=== PATIENT | female | born 1980 | race Caucasian/White ===

== ENCOUNTER 2021-12-10 00:42 | Day surgery (SDC) | payer BC, SELFPAY ==
[2021-12-04 13:11] VITALS: BMI 23.6
--- NOTE | 2021-12-04 13:20 | PC.NURSE ---
Report to the Outpatient Waiting Room, entrance under the green pavilion located off [facility], at time 1100 on date 12/10/21. OR Time: 1300. - You will be asked a series of questions to screen for COVID 19 for your protection. - A mask is required within the hospital. - No visitors are allowed at this time. Preoperative COVID Testing Requirements: TO BRING CARD No COVID Test needed if: (proof is required; if not received patient will have Rapid Test prior to entry) - Patient has received COVID Vaccine at least 14 days prior to procedure date or - Patient has positive COVID test result within last 90 days of surgery date. COVID Test needed if above criteria is not met Patients may have clear liquids (water, carbonated beverages, clear teas, apple juice) until 3 hours prior to surgery with a maximum of 20 ounces. - No food from midnight until time of surgery Take the following medications with a SIP of water the morning of surgery: DULOXETINE Medications to discontinue per physician: N/A Date to take last dose: N/A Please no make-up, nail lao, hairspray, perfume, deodorant, or body powder the day of surgery. No jewelry (including any body piercings) or valuables the day of surgery, leave them at home. Please take a shower or bath the night before, or the morning of, surgery with an antibacterial soap. Wear comfortable, loose fitting clothing. - Jewelry must be removed prior to entering the operating room. Rings and piercings that are not removed may be cut off. - The hospital will not accept responsibility for valuables. - Please leave all valuables, including medications, at home the day of surgery. If you are going home after surgery, a licensed motor bus driver must drive you home. - NO public transportation without another adult. - We recommend that an adult stay with you for 24 hours following discharge. - We also recommend that you do not drive, make important decision, drink alcoholic beverages, or take any drugs that were not prescribed by your health care provider for at least 24 hours after your discharge time. Follow any additional instructions given to you from your surgeon. Telephone instructions given to JAIRO FALK and asked if any additional questions and then verbalized understanding. Patient advised to call surgeon office or pre surgery nurse liaison [phone] if any additional questions.
[2021-12-10] VITALS (11 sets, daily range): BP systolic 64–120; BP diastolic 43–71; PULSE 52–83; RESP 12–16; TEMP 35.6–36.7; O2SAT 95–100
--- NOTE | 2021-12-10 08:14 | P.HP_ITS ---
H&P: HPI History of Present Illness Date/Time: 12/10/21 08:14 monthly cycles a little heavy. She had biopsy show ing JANICE II-III 07/2021 and has opted for hysterectomy for definitive therapy. Chief Complaint: JANICE III Review of Systems Review of Systems: All systems reviewed & are unremarkable except as noted in HPI and below PMFSH Past Medical History Medical History Anxiety Surgical History Surgical History H/O tubal ligation S/P endometrial ablation Family History Family History Grandparent Family history of thyroid disease Family history of osteoporosis Carcinoma of colon Diabetes mellitus Mother Asthma Patient's mother is in good health Sibling Asthma Patient's sister is in good health Father Patient's father is in good health Social History Social History Smoking packs per day: 1 Smoking cigarettes per day: 20.0 Years smoked: 0 Smoking pack-years: 0.00 Smoking status: Current every day smoker Tobacco type: cigarettes Additional smoking assessment comments: SMOKING SINCE AUGUST 2021 Alcohol intake: never Substance use: never Substance use type: does not use Living arrangements: alone Spiritual care concerns: No Meds Home Medications and Allergies Home Medications Medication Instructions Recorded Confirmed Type duloxetine 60 mg capsule,delayed 120 mg PO DAILY cap 11/12/21 12/04/21 History release Allergies Allergy/AdvReac Type Severity Reaction Status Date / Time codeine AdvReac Nausea and Verified 12/04/21 13:11 Vomiting Exam Const: General: healthy appearing, no acute distress, alert and awake Resp: Auscultation: clear to auscultation bilaterally Cardio: Rate: regular rate Rhythm: regular rhythm GI: Inspection: non-distended GI Palp: Yes Soft to palpation and No Tenderness to palpation present (GI) : Bimanual exam- vagina & uterus: normal bimanual exam, uterine size normal, uterine mobility normal, non-tender, no cervical motion tenderness and soft Bimanual Exam- Adnexa, other: normal adnexae, no masses and No adnexal tender ness Extrem: General: no pedal edema and no calf tenderness Psych: Mental Status: mental status grossly normal Assessment and Plan Assessment and plan (1) High grade squamous intraepithelial lesion (HGSIL), grade 3 JANICE, on biopsy of cervix: Code(s): D06.9 - Carcinoma in situ of cervix, unspecified Status: Acute Assessment and Plan: She signed consent after risks, benefits, complications, and alternatives discussed for TVH. She is already s/p bilateral salpingectomy for contraception, and we plan to leave ovaries in place assuming they look normal. She expressed understanding and wishes to proceed.
[2021-12-10] MEDS: ACETAMINOPHEN 500 MG TABLET 1000 MG PO (10:30)
[2021-12-10] MEDS: LACTATED RINGERS 1,000 ML 30 ML IV CONT ×2 (10:35→14:13)
[2021-12-10] MEDS: KETOROLAC 15 MG/ML VIAL (*BKC) IV PUSH ×2 (10:37→15:34)
--- NOTE | 2021-12-10 11:41 | WPDHPUPDATE1 ---
History and Physical Update Update Date/Time: 12/10/21 11:41 History and Physical has been reviewed, including an updated exam of the patient. There are NO changes in the patient's condition. Risks, benefits, and alternatives have been discussed and questions answered. Patient agrees to proceed with procedure.
--- NOTE | 2021-12-10 11:45 | P.PNAN_ITS ---
Anes - Initial Pre Proc Eval Procedure: Operation Date: 12/10/21 12:00 Proposed Procedures p Total Vaginal Hysterectomy - Yoselin Mariano MD Date/Time: 12/10/21 11:45 Surgeon: Yoselin Mariano MD Pre Op Diagnosis: JANICE 3 Patient Data Age: 41 Gender: F Height: 1.63 m Weight: 59.7 kg Last Vital Signs Temp 36.7 C 12/10/21 10:14 Pulse 83 12/10/21 10:14 Resp 16 12/10/21 10:14 BP 118/62 12/10/21 10:15 Pulse Ox 100 12/10/21 10:14 Allergies Allergy/AdvReac Type Severity Reaction Status Date / Time codeine AdvReac Nausea and Verified 12/10/21 10:41 Vomiting Home Medications Medication Instructions Recorded Confirmed Type duloxetine 60 mg capsule,delayed 120 mg PO HS cap 11/12/21 12/10/21 History release Patient hx anesthesia problems: none Family hx anesthesia problems: none Results Review: All pre-operative results and documents have been reviewed as part of the pre-operative evaluation. [facility] Past Medical History Medical History Anxiety Surgical History Surgical History H/O tubal ligation S/P endometrial ablation Family History Family History Grandparent Family history of thyroid disease Family history of osteoporosis Carcinoma of colon Diabetes mellitus Mother Asthma Patient's mother is in good health Sibling Asthma Patient's sister is in good health Father Patient's father is in good health Social History Social History Smoking packs per day: 1 Smoking cigarettes per day: 20.0 Years smoked: 0 Smoking pack-years: 0.00 Smoking status: Current every day smoker Tobacco type: cigarettes Additional smoking assessment comments: SMOKING SINCE AUGUST 2021 Alcohol intake: never Substance use: never Substance use type: does not use Living arrangements: alone Spiritual care concerns: No Anes - Eval Final PreProcedure Day of Procedure 12/10/21 11:45 Patient weight: normal Heart: regular rate and rhythm Lungs: clear to auscultation Airway: Mallampati scale class II Neurological: alert and oriented Last oral intake: >/= 8 hours ASA classification: II Emergent: no Anesthetic plan: proceed Anesthesia type and monitoring: general ETT and standard monitoring Results Review: All pre-operative results and documents have been reviewed as part of the pre-operative evaluation. Informed Consent: The patient's anesthetic plan and its attendant risks and benefits were discussed with the patient/family/POA. Questions were solicited and answers provided to the satisfaction of the patient/family/POA.
[2021-12-10] MEDS: ceFAZolin 2 GM/D5W 50 ML 2 GM/50 ML BAG IVPB (12:59)
--- NOTE | 2021-12-10 14:11 | W.PM.PROC2 ---
Procedure Note - Detailed Date of Procedure 12/10/21 Pre-op Diagnosis JANICE 3 Post-op Diagnosis same Procedure Performed [facility] Surgeon Yoselin Mariano MD Anesthesia general Indications JANICE III Findings normal uterus with normal appearing ovaries Description of Procedure She was taken to the operating room where she was prepared and draped in the normal sterile fashion in the dorsal lithotomy position a weighted speculum was placed in the vagina. The cervix was grasped with 2 single-tooth tenaculum. The cervix was circumferentially incised. The underlying cervix was then the vaginal tissue sharply with Graner scissors. The posterior cul-de-sac was entered sharply with the Garner scissors. The Angelia weighted retractor was then placed in the posterior peritoneal cavity. The LigaSure device was then used to divide the uterosacral ligament on each side, with excellent hemostasis visualized. The anterior cul-de-sac was then entered sharply with the Metzenbaum scissors. The uterine arteries were then clamped coagulated and transected using the LigaSure device. Several more bites were taken of the broad ligament until the cornua was reached. H chordoma was clamped and transected using the LigaSure device. Excellent hemostasis was visualized. A sponge stick was used to push back the bowel. Both ovaries were visualized and appeared small and normal. The peritoneum was then closed in a pursestring fashion with 2-0 Vicryl. The uterosacral ligaments were tied together using 0 Vicryl to support the vaginal cuff. The vaginal cuff was closed using 2-0 Vicryl interrupted sutures in a vertical direction. All instruments were removed from the vagina. She tolerated the procedure well. Sponge, lap, needle, and instrument counts were correct x2. She was taken to the recovery room in stable condition. Estimated Blood Loss 50 Urine Output 125 Drains Yes (Laird) Packing No Pathology yes Complications No immediate complications Condition stable Disposition PACU
[2021-12-10] MEDS: fentaNYL CITRATE INJ (*CRX) 100 MCG/2 ML VIAL 25 MCG IV PUSH ×4 (14:20→15:25)
--- NOTE | 2021-12-10 15:55 | PC.NURSE ---
This patient, Jenny Sims, was received from PACU per bed to room 278. Patient oriented to unit policies and routines
[2021-12-10] MEDS: DEXTROSE 5%/LACTATED RINGERS 1,000 ML 125 ML IV CONT (16:24)
[2021-12-10] MEDS: traMADol HCL (*CRX) 50 MG TABLET PO (19:15)
[2021-12-10] MEDS: ENOXAPARIN 40 MG/0.4 ML SYRINGE SUB-Q (21:20)
[2021-12-11 00:30] VITALS: PULSE 68; RESP 16; O2SAT 98
[2021-12-11 00:51] VITALS: BP 83/49; PULSE 68; RESP 16; TEMP 37; O2SAT 98
[2021-12-11 04:45] VITALS: BP 90/43; PULSE 74; RESP 16; TEMP 36.8; O2SAT 96
[2021-12-11] MEDS: traMADol HCL (*CRX) 50 MG TABLET PO ×2 (04:59→10:24)
[2021-12-11 05:30] LABS: Basophils Percent Auto 0.2 % (0.2-1.2); Hematocrit 33.2 % (37.0-47.0); Hemoglobin 10.5 g/dL (12.0-15.0); Immature Granulocyte Absolute 0.04 K/mm3 (0.00-0.031); Immature Granulocyte Percent A 0.4 % (0-0.5); Lymphocytes Absolute Auto 1.67 K/mm3 (0.9-3.2); Lymphocytes Percent Auto 14.9 % (18.3-44.2); Mean Corpuscular HGB Conc 31.6 g/dl (32-36); Mean Corpuscular Hemoglobin 26.6 pg (26-34); Mean Corpuscular Volume 84.3 fl (80-100); Monocytes Absolute Auto 0.6 K/mm3 (0.1-0.6); Monocytes Percent Auto 5.6 % (2.6-8.5); Neutrophils Absolute Auto 8.8 K/mm3 (1.3-6.7); Neutrophils Percent Auto 78.9 % (45.5-73.1); Platelet Count Result 257 k/mm3 (150-375); Red Blood Count 3.94 M/mm3 (4.2-5.4); White Blood Count 11.2 K/mm3 (4.5-10.0)
[2021-12-11 06:00] LABS: Anion Gap 4 mmol/L (8-16); Blood Urea Nitrogen 9 mg/dL (7-17); Calcium 8.2 mg/dL (8.4-10.2); Carbon Dioxide 22 mmol/L (22-30); Chloride 109 mmol/L (98-107); Estimated CRCL calculation 77 ml/min; Estimated Glomerular Filt Rate > 60; Glucose 89 mg/dL (65-110); Potassium 3.2 mmol/L (3.4-5.0); Sodium 135 mmol/L (137-145)
[2021-12-11 07:00] VITALS: BP 90/32; PULSE 68; RESP 16; TEMP 37.1
--- NOTE | 2021-12-11 08:14 | PM.GYNPNOP ---
PIPE RACKER - A/P Postoperative Procedures: Procedures Operation Date: 12/10/21 12:00 Actual Procedure Side Surgeon p Total Vaginal Hysterectomy Not Applicable Yoselin Mariano MD Postoperative day: 1 (s/p hysterectomy) Postoperative status: doing well Postoperative plan: routine post-op care and discharge (and follow up in office in 1 week) Time Spent With Patient Time: Total time spent is greater than 50% in coordination of care (as documented) at patient's floor/unit and/or counseling patient: Time with patient: less than 15 minutes PIPE RACKER- PN:Subj Post-Op Subjective Date/time seen: 12/11/21 08:14 Subjective: patient has no complaints, pain is well controlled and other (Tolerating regular diet. + flatus. Voiding without problems) Exam Const: General: no acute distress Resp: Auscultation: clear to auscultation bilaterally Cardio: Rate: regular rate Rhythm: regular rhythm GI: Inspection: non-distended and incision (Intact without erythema, drainage, or induration) GI Palp: Yes abdominal tenderness (appropriate) and Yes Soft to palpation Extrem: General: no edema PIPE RACKER - PN: Obj Data Vital Signs Vital Signs: Vital Signs - 24 hr 12/10/21 10:14 12/10/21 10:15 12/10/21 14:13 Temperature 36.7 C 36.4 C L Pulse Rate 83 55 L Respiratory Rate 16 16 Blood Pressure 64/43 L 118/62 120/66 Pulse Oximetry 100 100 12/10/21 14:25 12/10/21 14:40 12/10/21 14:55 Temperature Pulse Rate 53 L 52 L 52 L Respiratory Rate 14 14 12 Blood Pressure 109/64 112/71 104/61 Pulse Oximetry 100 100 97 12/10/21 15:10 12/10/21 15:25 12/10/21 15:40 Temperature Pulse Rate 58 L 57 L 66 Respiratory Rate 16 12 12 Blood Pressure 98/53 L 93/57 L 91/62 L Pulse Oximetry 97 95 95 12/10/21 16:00 12/10/21 19:00 12/11/21 00:30 Temperature 35.6 C L 36.7 C Pulse Rate 55 L 60 68 Respiratory Rate 14 16 16 Blood Pressure 91/51 L 91/55 L Pulse Oximetry 97 98 98 12/11/21 00:51 12/11/21 04:45 Temperature 37.0 C 36.8 C Pulse Rate 68 74 Respiratory Rate 16 16 Blood Pressure 83/49 L 90/43 L Pulse Oximetry 98 96 Intake/Output Intake/Output: Intake & Output 12/08/21 12/09/21 12/10/21 12/11/21 23:59 23:59 23:59 23:59 Intake Total 1060 60 Output Total 1080 400 Balance -20 -340 Meds/Results Medications: Active Medications Generic Name Dose Route Start Last Admin Trade Name Freq PRN Reason Stop Dose Admin Duloxetine HCl 120 mg 12/10/21 21:00 12/10/21 21:31 Duloxetine Hcl 60 Mg Capsule.Dr PO Not Given [facility] Enoxaparin Sodium 40 mg 12/10/21 20:00 12/10/21 21:20 Enoxaparin 40 Mg/0.4 Ml Syringe SUB-Q 40 mg DAILY@2000 [facility] Administration Dextrose/Lactated Ringer's 1,000 mls @ 125 mls/hr 12/10/21 15:46 12/11/21 00:56 Dextrose 5%/Lactated Ringers IV CONT Not Given .Q8H SIMA Ibuprofen 600 mg 12/10/21 15:46 Ibuprofen 600 Mg Tablet PO Q6H PRN Cramping Ketorolac Tromethamine 30 mg 12/10/21 15:46 Ketorolac 30 Mg/Ml Vial (*Bkc) IV PUSH 12/15/21 15:45 Q6H PRN Pain Rated 4-6 Naloxone HCl 0.1 mg 12/10/21 15:46 Naloxone Hcl 0.4 Mg/Ml Vial IV PUSH Q2M PRN Respiratory rate less than 10 Ondansetron HCl 4 mg 12/10/21 15:46 Ondansetron Inj 4 Mg/2 Ml Vial IV PUSH Q6H PRN Nausea And Vomiting Simethicone 80 mg 12/10/21 15:46 Simethicone 80 Mg Tab.Chew PO Q2H PRN Gas Tramadol HCl 50 mg 12/10/21 15:46 12/11/21 04:59 Tramadol Hcl (*Crx) 50 Mg Tablet PO 50 mg Q4H PRN Administration Pain Rated 4-6 Labs CBC & Chem 7: 12/11/21 04:58 12/11/21 04:58 Labs: Laboratory Results - last 24 hr 12/11/21 12/11/21 04:58 04:58 WBC 11.2 H RBC 3.94 L Hgb 10.5 L Hct 33.2 L MCV 84.3 MCH 26.6 MCHC 31.6 L RDW 15.0 H Plt Count 257 MPV 11.0 H Immature Gran % (Auto) 0.4 Neut % (Auto) 78.9 H Lymph % (Auto) 14.9 L [place] % (Auto) 5.6 Eos % (Auto) 0.0
--- NOTE | 2021-12-11 08:18 | PM.DS ---
DS: Admitting Diagnosis Discharge Date 12/11/2021 Admitting Diagnosis JANICE III DS: Discharge Diagnosis Discharge Diagnosis (1) S/P vaginal hysterectomy: Code(s): Z90.710 - Acquired absence of both cervix and uterus Status: Acute DS: Summary Hospital Course Hospital Course: 41-year-old was admitted on December 10 for a planned total vaginal hysterectomy. Her surgery was uneventful. Her postoperative course has also been uneventful. She is meeting all postoperative milestones and expresses a desire to be discharged home today on December 11 on postoperative day 1. She is being sent home with the follow-up and medications as listed elsewhere. Status at Discharge Functional status at discharge: independent ambulation Overall status at discharge: patient is progressing back to baseline Time Spent with Patient Time attestation: Total time spent providing and/or coordinating discharge services: Time spent: Less than 30 minutes DS: Data Data Completed and Pending Pending studies at discharge: Pending at discharge 12/10/21 13:40 Surgical [PTH] Routine Labs on day of discharge: Labs from last 24 hours 12/11/21 12/11/21 04:58 04:58 WBC 11.2 H RBC 3.94 L Hgb 10.5 L Hct 33.2 L MCV 84.3 MCH 26.6 MCHC 31.6 L RDW 15.0 H Plt Count 257 MPV 11.0 H Immature Gran % (Auto) 0.4 Neut % (Auto) 78.9 H Lymph % (Auto) 14.9 L [place] % (Auto) 5.6 Eos % (Auto) 0.0 Baso % (Auto) 0.2 Lymph # (Auto) 1.67 [place] # (Auto) 0.6 Eos # (Auto) 0.0 Baso # (Auto) 0.0 Abs Immat Gran (auto) 0.04 H Absolute Neuts (auto) 8.8 H Absolute Nucleated RBC 0.0 Nucleated RBC % 0.0 Sodium 135 L Potassium 3.2 L Chloride 109 H Carbon Dioxide 22 Anion Gap 4 L BUN 9 Creatinine 0.70 Estim Creat Clear Calc 77 Estimated GFR > 60 Glucose 89 Calcium 8.2 L Discharge Plan Discharge Patient Disposition: Home, Self-Care Stand Alone Forms: General Discharge Instructions Follow-up/Referrals: Yoselin Mariano MD [Physician] - 1 Week Discharge Medications: New tramadol 50 mg Tablet 50 mg PO Q4H PRN (Reason: Pain Rated 4-6) Qty: 30 RF: 0 Continued duloxetine [Cymbalta] 60 mg capsule,delayed release(DR/EC) 120 mg PO HS RF: 0 Quality VTE Prophylaxis VTE prophylaxis: mechanical ordered and pharmacologic ordered [facility] Discharge Billing Observation Discharge Observation Discharge: [id number] [facility] Care D/C
[2021-12-11 11:35] VITALS: BP 93/45; PULSE 72; RESP 18; TEMP 37; O2SAT 98
--- NOTE | 2021-12-11 12:42 | WPDANESPN ---
Anes - Prog Note Post-Op Date/Time: 12/11/21 12:42 Cardiovascular status: normal Respiratory status: normal Airway patency: baseline Mental status: baseline Post-Op hydration status: normal Vital Signs: Last Vital Signs Temp 37.0 C 12/11/21 11:35 Pulse 72 12/11/21 11:35 Resp 18 12/11/21 11:35 BP 93/45 L 12/11/21 11:35 Pulse Ox 98 12/11/21 11:35 Pain Score (VAS): 11/19 I/O: Intake & Output 12/10/21 12/11/21 12/11/21 23:59 07:59 15:59 Intake Total 60 60 Output Total 925 400 200 Balance -381 -340 200 Laboratory Tests 12/11/21 04:58 12/11/21 04:58 12/11/21 12/11/21 04:58 04:58 WBC 11.2 H RBC 3.94 L Hgb 10.5 L Hct 33.2 L MCV 84.3 MCH 26.6 MCHC 31.6 L RDW 15.0 H Plt Count 257 MPV 11.0 H Immature Gran % (Auto) 0.4 Neut % (Auto) 78.9 H Lymph % (Auto) 14.9 L [place] % (Auto) 5.6 Eos % (Auto) 0.0 Baso % (Auto) 0.2 Lymph # (Auto) 1.67 [place] # (Auto) 0.6 Eos # (Auto) 0.0 Baso # (Auto) 0.0 Abs Immat Gran (auto) 0.04 H Absolute Neuts (auto) 8.8 H Absolute Nucleated RBC 0.0 Nucleated RBC % 0.0 Sodium 135 L Potassium 3.2 L Chloride 109 H Carbon Dioxide 22 Anion Gap 4 L BUN 9 Creatinine 0.70 Estim Creat Clear Calc 77 Estimated GFR > 60 Glucose 89 Calcium 8.2 L Post-procedural complaints: none Patient Feedback: Patient satisfied with anesthetic care.
== END 2021-12-11 12:10 | disposition home or self-care (01) ==
LOC: ANHSURGERY 09:57 → ANHOB2 12-11 08:20
PROVIDERS: PCP Internal Medicine; Visit Provider Obstetrics & Gynecology
PROC: (CPT 58260; principal; 2021-12-10 12:00)
DX: D06.7 Carcinoma in situ of other parts of cervix (principal); N80.0 Endometriosis of uterus; N73.6 Female pelvic peritoneal adhesions (postinfective); F41.9 Anxiety disorder, unspecified; F17.210 Nicotine dependence, cigarettes, uncomplicated
CPT/HCPCS: 58260; 36415; 80048; 85025; 88307; 99199; A9270; J0690; J1100; J1170; J1650; J1885; J2250; J2405; J2704; J2710; J3010; J7120; J7121

== ENCOUNTER 2022-01-30 13:25 | Outpatient (CLI) | payer BC, SELFPAY ==
--- NOTE | ~2022-01-30 | MMUS_ITS ---
EXAMINATION: MM diagnostic jassi BI w anat, US breast BI complete HISTORY: Lumpy lateral right breast TECHNIQUE: ML, MLO and CC 3-D tomosynthesis images of were performed and synthetic 2-D images were ge nerated. Additional bilateral rotated lateral craniocaudal views. CAD analysis was submitted and inte rpreted. High resolution bilateral complete breast ultrasound including all 4 quadrants and subareola r areas was performed. COMPARISON: None BREAST PARENCHYMAL COMPOSITION: The breasts are heterogeneously dense, which may obscure small masses . FINDINGS: MAMMOGRAPHIC FINDINGS: No suspicious mass or architectural distortion, malignant calcification, skin thickening or retractio n is detected. ULTRASOUND: There are scattered occasional bilateral cysts and K unit cysts, the largest situated on the right at 1:00 1 cm from the nipple measuring approximately 6.4 x 5.8 x 6.2 mm. No suspicious solid lesion or shadowing of either breast is detected. IMPRESSION: 1. Benign occasional simple and complicated cysts; no mammographic evidence of malignancy 2. Routine annual mammographic screening is recommended. BI-RADS Category 2: Benign finding(s). Reviewed, dictated and finalized at location A. IMPRESSION: 1. Benign occasional simple and complicated cysts; no mammographic evidence of malignancy 2. Routine annual mammographic screening is recommended. BI-RADS Category 2: Benign finding(s).
== END 2022-01-30 13:26 | disposition home or self-care (01) ==
LOC: ANHIMG 13:28
PROVIDERS: PCP Internal Medicine; Visit Provider Obstetrics & Gynecology
DX: R92.8 Other abnormal and inconclusive findings on diagnostic imaging of breast (principal); N60.02 Solitary cyst of left breast; N60.01 Solitary cyst of right breast
CPT/HCPCS: 76641; 77062; 77066; G0279

== ENCOUNTER 2022-12-29 14:36 | Emergency (ER) | payer BC, SELFPAY ==
[2022-12-29 14:55] VITALS: BP 86/59; PULSE 89; RESP 16; TEMP 36.8; O2SAT 100
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
--- NOTE | 2022-12-29 16:19 | PC.NURSE ---
ER called and said the patient had not shown up and wanted to know if she was coming as they were holding a room for her. I called the patient and asked if she was going to go and she stated that she drove to [place] and saw that the waiting room was full and decided to go home and call her doctor in the morning.
== END 2022-12-29 15:23 | disposition short-term general hospital (02) ==
PROVIDERS: Emergency Provider Nurse Practitioner; PCP Internal Medicine
DX: R55 Syncope and collapse (principal); S09.93XA Unspecified injury of face, initial encounter; W19.XXXA Unspecified fall, initial encounter; R42 Dizziness and giddiness; Z87.891 Personal history of nicotine dependence; F41.9 Anxiety disorder, unspecified
CPT/HCPCS: 99213; G0463

== ENCOUNTER 2023-06-13 08:26 | Emergency (ER) | payer BC, SELFPAY ==
[2023-06-13] VITALS (12 sets, daily range): BP systolic 98–114; BP diastolic 53–81; PULSE 48–60; RESP 6–18; TEMP 36.1; O2SAT 96–99
--- NOTE | ~2023-06-13 | XR_ITS ---
EXAMINATION: XR chest 2V DATE: 06/13/2023 09:18 INDICATION: Chest pain. TECHNIQUE: Frontal and lateral views of the chest were obtained. COMPARISON: Chest 2 views 04/14/2016 FINDINGS: The chest demonstrates clear lungs without pneumonia, pleural effusion, or pneumothorax. Th e heart size is normal. IMPRESSION: 1. No acute cardiopulmonary disease. Reviewed, dictated and finalized at location B.
--- NOTE | 2023-06-13 08:31 | ECG_ITS ---
Measurements Intervals [place] Rate: 55 P: 57 ME: 185 QRS: 59 QRSD: 92 T: 14 QT: 408 QTc: 392 Interpretive Statements SINUS BRADYCARDIA NONSPECIFIC T-WAVE FLATTENING BORDERLINE ECG NO PREVIOUS ECG AVAILABLE FOR COMPARISON Electronically Signed On 06-13-2023 13:06:05 CDT by Erich Rios M.D.
[2023-06-13] MEDS: ASPIRIN 81 MG CHEWABLE TABLET 324 MG PO (08:54)
[2023-06-13 08:56] LABS: Basophils Percent Auto 0.7 % (0.2-1.2); Eosinophils Absolute Auto 0.1 K/mm3 (0-0.3); Eosinophils Percent Auto 2.4 % (0-4.4); Hematocrit 41.9 % (37.0-47.0); Immature Granulocyte Absolute 0.01 K/mm3 (0.00-0.031); Immature Granulocyte Percent A 0.2 % (0-0.5); Lymphocytes Absolute Auto 1.61 K/mm3 (0.9-3.2); Lymphocytes Percent Auto 38.3 % (18.3-44.2); Mean Corpuscular HGB Conc 33.4 g/dl (32-36); Mean Corpuscular Hemoglobin 30.1 pg (26-34); Mean Corpuscular Volume 90.1 fl (80-100); Mean Platelet Volume 10.3 fl (7.4-10.4); Monocytes Absolute Auto 0.4 K/mm3 (0.1-0.6); Neutrophils Percent Auto 48.4 % (45.5-73.1); Platelet Count Result 235 k/mm3 (150-375); Red Blood Count 4.65 M/mm3 (4.2-5.4); Red Cell Distribution Width 13.1 % (11.5-14.5); White Blood Count 4.2 K/mm3 (4.5-10.0)
[2023-06-13 09:07] LABS: Alanine Aminotransferase 26 U/L (6-35); Albumin Level 4.1 g/dL (3.5-5.1); Alkaline Phosphatase 37 U/L (38-126); Anion Gap 8 mmol/L (8-16); Aspartate Amino Transferase 25 U/L (14-36); Bilirubin,Total 0.5 mg/dL (0.2-1.3); Blood Urea Nitrogen 12 mg/dL (7-17); Calcium 8.6 mg/dL (8.4-10.2); Carbon Dioxide 27 mmol/L (22-30); Chloride 104 mmol/L (98-107); Estimated CRCL calculation 79 ml/min; Estimated Glomerular Filt Rate > 60; Glucose 112 mg/dL (65-110); Lipase 68 U/L (23-300); Potassium 3.6 mmol/L (3.4-5.0); Sodium 139 mmol/L (137-145)
[2023-06-13 09:16] LABS: Prothrombin Time 13.2 Seconds (11.1-14.7)
[2023-06-13 09:17] LABS: Partial Thromboplastin Time 32.2 SECONDS (22.3-36.8)
[2023-06-13 09:18] LABS: Troponin I < 0.012 ng/mL (0.000-0.034)
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
[2023-06-13 12:09] LABS: Troponin I < 0.012 ng/mL (0.000-0.034)
== END 2023-06-13 12:26 | disposition home or self-care (01) ==
PROVIDERS: Emergency Provider Emergency Medicine; PCP Internal Medicine
DX: R07.89 Other chest pain (principal); F41.9 Anxiety disorder, unspecified; Z90.710 Acquired absence of both cervix and uterus; Z87.891 Personal history of nicotine dependence; R00.1 Bradycardia, unspecified; R94.31 Abnormal electrocardiogram [ECG] [EKG]
CPT/HCPCS: 36415; 71046; 80053; 83690; 84484; 85025; 85610; 85730; 93005; 99284; A9270